=== PATIENT | male | born 1990 | race Caucasian/White ===

== ENCOUNTER 2021-07-22 10:48 | Emergency (ER) | payer OTHER ==
--- NOTE | 2021-07-22 12:28 | EDM.PDOC ---
ED HPI GENERAL MEDICAL PROBLEM - General Chief Complaint: Upper Extremity Injury/Pain Stated Complaint: LEFT HAND INJURY Time Seen by Provider: 07/22/21 12:11 Source of Information: Reports: Patient History Limitations: Reports: No Limitations - History of Present Illness INITIAL COMMENTS - FREE TEXT/NARRATIVE: Patient is a 31-year-old male presents today for left hand pain. 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 He has pain to the dorsal side of the second digit and also the wrist. He has tried Motrin at home without relief. Movement or palpation makes it worse nothing makes the pain better. He has no other associated symptoms. Hand Pain Score (Numeric/FACES): 10 - Related Data Allergies Allergy/AdvReac Type Severity Reaction Status Date / Time No Known Allergies Allergy Verified 07/22/21 12:20 Home Meds: Home Meds . [No Known Home Meds] 07/22/21 [History] Past Medical History - Past Health History Medical/Surgical History: Denies Medical/Surgical History Social & Family History - Family History Family Medical History: No Pertinent Family History - Tobacco Use Tobacco Use Status *Q: Never Tobacco User Second Hand Smoke Exposure: No - Caffeine Use Caffeine Use: Reports: None - Recreational Drug Use Recreational Drug Use: No Review of Systems - Review of Systems Review Of Systems: See Below Constitutional: Reports: No Symptoms Eyes: Reports: No Symptoms Ears: Reports: No Symptoms Nose: Reports: No Symptoms Mouth/Throat: Reports: No Symptoms Respiratory: Reports: No Symptoms Cardiovascular: Reports: No Symptoms GI/Abdominal: Reports: No Symptoms Genitourinary: Reports: No Symptoms Musculoskeletal: Reports: Hand Pain Skin: Reports: No Symptoms Neurological: Reports: No Symptoms Psychiatric: Reports: No Symptoms ED EXAM, GENERAL - Physical Exam Exam: See Below Exam Limited By: No Limitations General Appearance: Alert, WD/WN, No Apparent Distress Respiratory/Chest: No Respiratory Distress, Lungs Clear, Normal Breath Sounds Cardiovascular: Normal Peripheral Pulses, Regular Rate, Rhythm GI/Abdominal: Normal Bowel Sounds Extremities: Normal Range of Motion. No: Normal Inspection ([place] to the dorsal side of the left hand), Non-Tender Neurological: Alert, Oriented Course - Vital Signs Last Recorded V/S: Last Vital Signs Temp 97.7 F 07/22/21 12:17 Pulse 69 07/22/21 12:17 Resp 20 07/22/21 12:17 BP 131/75 07/22/21 12:17 Pulse Ox 97 07/22/21 12:17 - Orders/Labs/Meds Orders: Active Orders 24 hr Category Date Time Status DME for Discharge [COMM] Stat Oth 07/22/21 14:22 Ordered Meds: Medications Discontinued Medications Generic Name Dose Route Start Last Admin Trade Name [place] PRN Reason Stop Dose Admin Tramadol HCl 50 mg 07/22/21 13:23 07/22/21 13:43 Tramadol 50 Mg Tab PO 07/22/21 13:24 50 mg ONETIME ONE Administration Departure - Departure Time of Disposition: 14:32 Disposition: Home, Self-Care 01 Condition: Good Clinical Impression: Hand sprain - Discharge Information *PRESCRIPTION DRUG MONITORING PROGRAM REVIEWED*: Not Applicable *COPY OF PRESCRIPTION DRUG MONITORING REPORT IN PATIENT ROMARIO: Not Applicable Instructions: Wrist Sprain, Adult Referrals: PCP,None [Primary Care Provider] - Forms: ED Department Discharge Additional Instructions: The following information is given to patients seen in the emergency department who are being discharged to home. This information is to outline your options for follow-up care. We provide all patients seen in our emergency department with a follow-up referral. The need for follow-up, as well as the timing and circumstances, are variable depending upon the specifics of your emergency department visit. If you don't have a primary care physician on staff, we will provide you with a referral. We always advise you to contact your personal physician following an emergency department visit to inform them of the circumstance of the visit and for follow-up with them and/or the need for any referrals to a consulting specialist. The emergency department will also refer you to a specialist when appropriate. This referral assures that you have the opportunity for follow-up care with a specialist. All of these measure are taken in an effort to provide you with optimal care, which includes your follow-up. Under all circumstances we always encourage you to contact your private physician who remains a resource for coordinating your care. When calling for follow-up care, please make the office aware that this follow-up is from your recent emergency room visit. If for any reason you are refused follow-up, please contact the [facility] Emergency Department at and asked to speak to the emergency department charge nurse. Please follow up with your primary care physician. If you do not have a primary care physician, see below: [facility] [address] [place] [address] My [facility] [address] [place], [place] [address] You were seen today for hand pain. X-ray shows no fracture you still be discharged. Sepsis Event Note (ED) - Evaluation Sepsis Screening Result: No Definite Risk - Focused Exam Vital Signs: Vital Signs Temp Pulse Resp BP Pulse Ox 07/22/21 12:17 97.7 F 69 20 131/75 97 - My Orders Last 24 Hours: My Active Orders 07/22/21 14:22 DME for Discharge [COMM] Stat - Assessment/Plan Last 24 Hours: My Active Orders 07/22/21 14:22 DME for Discharge [COMM] Stat Plan: Is a 31-year-old male presents with left hand and wrist pain. Patient is unsure of injury happened. Will obtain x-rays provide pain control and reassess.
[2021-07-22] MEDS ORDERED: traMADol 50 MG Tab PO ONE (13:23)
--- NOTE | 2021-07-22 14:27 | CR ---
Indication: Pain swelling Technique: Four views the left hand Comparison: No comparison Findings: Normal alignment. No fractures or acute osseous abnormalities. Impression: No acute fracture. Dictated by Lorna Ho MD @ 07/22/2021 2:26:[address] Lorna Ho @ Jul 22 2021 2:26PM
--- NOTE | 2021-07-22 14:29 | CR ---
Indication: Pain swelling Technique: Three views of the left wrist Comparison: No comparison Findings: Normal alignment. No acute fractures or acute osseous abnormality soft tissue swelling. Impression: No acute fracture Dictated by Lorna Ho MD @ 07/22/2021 2:27:[address] Lorna Ho @ Jul 22 2021 2:27PM
== END 2021-07-22 14:24 | disposition home or self-care (01) ==
LOC: MW.ED 10:48
DX: S63.92XA Sprain of unspecified part of left wrist and hand, initial encounter (principal); X50.0XXA Overexertion from strenuous movement or load, initial encounter
CPT/HCPCS: 73110; 73130; 99283; A9270